=== PATIENT | female | born 1985 | race African-American/Black ===

== ENCOUNTER 2017-07-26 07:19 | Emergency (ER) | payer OTHER ==
[2017-07-26 08:23] LABS: Bilirubin Negative (Negative); Blood, Urine Negative (Negative); Glucose, Urine (Dipstick) Negative (Negative); Ketone, Urine Negative (Negative); Nitrite Negative (Negative); Protein, Urine (Dipstick) Negative (Neg-Trace); Urobilinogen 0.2 mg/dL (0.2-1.0)
[2017-07-26 08:55] LABS: Bacteria/HPF 2+ HPF (None Seen); Hyaline Casts/LPF 0-3 HYALINE CAST LPF (0-3 Hyaline); RBC/HPF 0-3 HPF (0-3)
[2017-07-26 09:04] LABS: #Basophils 0.1 thou/uL (0.0-0.2); #Eosinphils 0.1 thou/uL (0.0-0.7); #Lymphocytes 3.8 thou/uL (1.20-3.40); #Neutrophils 7.3 thou/uL (1.40-6.50); %Basophils 0.8 % (0.0-1.0); %Eosinophils 0.7 % (0.0-10.0); %Lymphocytes 30.8 % (21.0-51.0); %Monocytes 8.1 % (0.0-10.0); Hematocrit 34.5 % (36.0-47.0); Mean Platelet Volume 6.3 fL (7.4-10.4); Red Blood Cell (RBC) Count 4.17 mill/uL (4.20-5.40); White Blood Cell (WBC) Count 12.2 thou/uL (4.8-10.8)
[2017-07-26 09:34] LABS: ALT (SGPT) 15 U/L (8-55); AST (SGOT) 12 U/L (5-34); Alkaline Phosphatase 73 U/L (40-150); Anion Gap 11 mmol/L (10-20); BUN (Urea Nitrogen) 6 mg/dL (7.0-18.7); Bilirubin, Total 0.2 mg/dL (0.2-1.2); CK (CPK) 143 U/L (29-168); Calc. Creatinine Clearance 0 mL/min (70-130); Calcium 9.4 mg/dL (7.8-10.44); Carbon Dioxide 26 mmol/L (22-29); Chloride 104 mmol/L (98-107); Estimated GFR-MDRD Greater than 90; Globulin 3.3 g/dL (2.4-3.5); Lipase 11 U/L (8-78); Protein, Total 7.1 g/dL (6.0-8.3)
[2017-07-26] MEDS ORDERED: Ondansetron HCl/PF 4 MG/2 ML Vial IVP PRN (10:00)
[2017-07-26] MEDS ORDERED: Famotidine/PF 20 mg/2ml Vial SLOW IVP SCH (10:15)
[2017-07-26] MEDS ORDERED: Ondansetron ODT 4 MG TAB ONE (10:59)
[2017-07-26] MEDS ORDERED: Famotidine 20 MG TAB ONE (10:59)
--- NOTE | 2017-07-26 11:02 | CT ---
CT OF THE ABDOMEN AND PELVIS WITH CONTRAST: COMPARISON: None. HISTORY: Diffuse abdominal pain with nausea for a week. Diarrhea for 3 days. TECHNIQUE: Multiple contiguous axial images were obtained in a CT of the abdomen and pelvis with IV contrast. P.o. contrast was administered. Coronal reformats were performed. The IV infiltrated during the ex amination. The patient did not receive very much intravenous contrast. FINDINGS: This exam is basically a noncontrast examination without significant enhancement of the solid organs . The liver, gallbladder, kidneys, adrenal glands, spleen, and pancreas are unremarkable, although evaluation is limited without significant enhancement of the solid organs. The large and small bowel are unremarkable. The appendix is not definitely seen. The reproductive organs are unremarkable. No abdominal or pelvic lymphadenopathy are present. The osseous structures, visualized inferior thorax, and abdominal wall soft tissues are unremarkable . IMPRESSION: No evidence of acute intraabdominal/pelvic abnormality. POS: [facility]
[2017-07-26] MEDS ORDERED: Iopamidol 370 76% 50 ML VIAL FS ONE (13:49)
[2017-07-26] MEDS ORDERED: ISOVUE-370 76%-LOCM 1 ML ONE (13:50)
== END 2017-07-26 11:29 | disposition home or self-care (01) ==
LOC: ERS 07:19
DX: R10.13 Epigastric pain (principal); R10.11 Right upper quadrant pain; R19.7 Diarrhea, unspecified; I10 Essential (primary) hypertension; E11.9 Type 2 diabetes mellitus without complications; Z79.899 Other long term (current) drug therapy
CPT/HCPCS: 36415; 74177; 80053; 81003; 81015; 81025; 82550; 83605; 83690; 85025; 87086; Q0162

== ENCOUNTER 2017-09-24 07:20 | Emergency (ER) | payer OTHER ==
[2017-09-24 07:57] LABS: Bilirubin Negative (Negative); Blood, Urine Moderate (Negative); Glucose, Urine (Dipstick) Negative (Negative); Ketone, Urine Negative (Negative); Nitrite Negative (Negative); Protein, Urine (Dipstick) Negative (Neg-Trace); Urobilinogen 0.2 mg/dL (0.2-1.0)
[2017-09-24 08:00] LABS: Bacteria/HPF 1+ HPF (None Seen); Hyaline Casts/LPF 0-3 HYALINE CAST LPF (0-3 Hyaline); RBC/HPF 0-3 HPF (0-3)
== END 2017-09-24 08:39 | disposition home or self-care (01) ==
LOC: ERS 07:20
DX: N39.0 Urinary tract infection, site not specified (principal); I10 Essential (primary) hypertension; E11.9 Type 2 diabetes mellitus without complications
CPT/HCPCS: 81003; 81015; 81025; 99283

== ENCOUNTER 2017-12-25 07:30 | Emergency (ER) | payer OTHER | END 2017-12-25 08:23 | disposition home or self-care (01) | LOC: ERS 07:30 | DX: R60.0 Localized edema (principal); I10 Essential (primary) hypertension; E11.9 Type 2 diabetes mellitus without complications | CPT/HCPCS: 99283 ==

== ENCOUNTER 2018-03-16 23:43 | Emergency (ER) | payer OTHER ==
[2018-03-17] MEDS ORDERED: hydrALAZINE 20 MG/ML VIAL ONE (01:51)
[2018-03-17] MEDS ORDERED: Ketorolac Tromethamine 30 MG/ML VIAL ONE (03:57)
[2018-03-17 04:10] LABS: ALT (SGPT) 25 U/L (8-55); AST (SGOT) 18 U/L (5-34); Albumin 3.5 g/dL (3.5-5.0); Alkaline Phosphatase 70 U/L (40-150); Anion Gap 12 mmol/L (10-20); BUN (Urea Nitrogen) 6 mg/dL (7.0-18.7); Bilirubin, Total 0.2 mg/dL (0.2-1.2); Calc. Creatinine Clearance 0 mL/min (70-130); Calcium 8.5 mg/dL (7.8-10.44); Carbon Dioxide 23 mmol/L (22-29); Chloride 107 mmol/L (98-107); Estimated GFR-MDRD Greater than 90; Glucose 89 mg/dL (70-105); Potassium 3.7 mmol/L (3.5-5.1); Protein, Total 6.5 g/dL (6.0-8.3); Sodium 138 mmol/L (136-145)
[2018-03-17 04:14] LABS: CKMB 0.6 ng/mL (0-6.6); Troponin I Less than 0.010 ng/mL (< 0.028)
[2018-03-17 04:27] LABS: #Eosinphils 0.1 thou/uL (0.0-0.7); #Monocytes 0.8 thou/uL (0.11-0.59); #Neutrophils 5.2 thou/uL (1.40-6.50); %Basophils 0.5 % (0.0-1.0); %Eosinophils 1.6 % (0.0-10.0); %Monocytes 8.8 % (0.0-10.0); %Neutrophils 56.1 % (42.0-75.0); Hemoglobin 9.9 g/dL (12.0-16.0); Mean Corpuscular HGB CONC 33.5 g/dL (32.0-36.0); Mean Corpuscular Hemoglobin 26.8 pg (27.0-31.0); Mean Platelet Volume 6.7 fL (7.4-10.4); Platelet Count 394 thou/uL (130-400); Red Blood Cell (RBC) Count 3.69 mill/uL (4.20-5.40); White Blood Cell (WBC) Count 9.2 thou/uL (4.8-10.8)
[2018-03-17] MEDS ORDERED: cloNIDine 0.1 MG TAB ONE (04:32)
--- NOTE | 2018-03-17 07:41 | CT ---
FINAL REPORT EMERGENT AFTER HOURS CT OF THE BRAIN WITHOUT CONTRAST: FINDINGS/IMPRESSION: I agree with the findings and impression given in the preliminary report per [facility] physician. No mason dence of acute intracranial abnormality. POS: [id number]
--- NOTE | 2018-03-17 07:42 | RAD ---
SINGLE VIEW OF THE CHEST: COMPARISON: 11/22/08. HISTORY: Headache for 2 days. FINDINGS: Single view of the chest shows a normal sized cardiomediastinal silhouette. There is no evidence of c onsolidation, mass, or pleural effusion. The bones are unremarkable. IMPRESSION: No evidence of acute cardiopulmonary disease. POS: [facility]
== END 2018-03-17 05:08 | disposition home or self-care (01) ==
LOC: ERS 23:43
DX: I10 Essential (primary) hypertension (principal); E11.9 Type 2 diabetes mellitus without complications; Z79.899 Other long term (current) drug therapy
CPT/HCPCS: 36415; 70450; 71045; 80053; 82553; 83880; 84484; 85025; 93005; 96374; 96375; J0360; J1885

== ENCOUNTER 2019-04-03 17:01 | Emergency (ER) | payer BC, OTHER ==
[2019-04-03] MEDS ORDERED: Ibuprofen 800 MG TAB ONE (17:28)
[2019-04-03] MEDS ORDERED: Dexamethasone 10 MG/ML VIAL ONE (17:28)
== END 2019-04-03 17:57 | disposition home or self-care (01) ==
LOC: ERS 17:01
DX: J02.9 Acute pharyngitis, unspecified (principal); I10 Essential (primary) hypertension; E11.9 Type 2 diabetes mellitus without complications; Z79.899 Other long term (current) drug therapy
CPT/HCPCS: 87081; 87430; 99284; J1100

== ENCOUNTER 2019-05-29 00:08 | Emergency (ER) | payer BC ==
[2019-05-29] MEDS ORDERED: Lidocaine 1% PF 5 ML VIAL ONE (00:34)
[2019-05-29] MEDS ORDERED: Acetaminophen 500 MG TAB ONE (01:15)
== END 2019-05-29 01:26 | disposition home or self-care (01) ==
LOC: ERS 00:08
DX: L73.9 Follicular disorder, unspecified (principal); I10 Essential (primary) hypertension; E11.9 Type 2 diabetes mellitus without complications; Z79.899 Other long term (current) drug therapy
CPT/HCPCS: 99282; J2001

== ENCOUNTER 2019-12-14 19:30 | Outpatient (CLI) | payer BC | END 2019-12-14 19:31 | disposition home or self-care (01) | LOC: SLEEPLAB 19:30 | PROVIDERS: ATTEND Physician Assistant Medical | DX: G47.33 Obstructive sleep apnea (adult) (pediatric) (principal); E66.9 Obesity, unspecified | CPT/HCPCS: 95811 ==

== ENCOUNTER 2024-04-29 10:14 | Emergency (ER) | payer SELFPAY ==
[2024-04-29] MEDS ORDERED: Dexamethasone 4 MG TAB ONE (11:01)
[2024-04-29] MEDS ORDERED: Ibuprofen 800 MG TAB ONE (11:01)
[2024-04-29 11:48] LABS: Influenza A by NAA Not Detected (NotDetected); Influenza B by NAA Not Detected (NotDetected); SARS-CoV-2 NAA Rapid Test Not Detected (NotDetected)
== END 2024-04-29 12:33 | disposition home or self-care (01) ==
LOC: ERS 10:14
DX: J02.9 Acute pharyngitis, unspecified (principal); B97.89 Other viral agents as the cause of diseases classified elsewhere; E11.9 Type 2 diabetes mellitus without complications; I10 Essential (primary) hypertension; Z79.899 Other long term (current) drug therapy
CPT/HCPCS: 87081; 87430; 99282; J8540